=== PATIENT | female | born 1995 | race American Indian/Alaskan Native ===

== ENCOUNTER 2019-08-10 20:41 | Emergency (ER) | payer MEDICAID ==
[2019-08-10 20:52] VITALS: BP 104/62
--- NOTE | 2019-08-10 21:13 | Event Note ---
ED Screening Note Date of service: 08/10/19 Time: 21:12 ED Screening Note: Pt complains vaginal pain and swelling x 1 week denies diabetes +vaginal discharge denies dysuria/hematuria This initial assessment/diagnostic orders/clinical plan/treatment(s) is/are subject to change based on patients health status, clinical progression and re- assessment by fellow clinical providers in the ED. Further treatment and workup at subsequent clinical providers discretion. Patient/guardian urged not to elope from the ED as their condition may be serious if not clinically assessed and managed. Initial orders include: UA
[2019-08-10 22:06] LABS: Bacteria,Urine 2+ /HPF (Negative); Bilirubin,Urine NEG (Negative); Blood,Urine NEG (Negative); Color,Urine Yellow (Yellow); Mucus,Urine 3+ /HPF; Protein,Urine <15 mg/dL mg/dL (Negative); Urobilinogen,Urine < 2.0 mg/dL (<2.0)
[2019-08-10 22:08] LABS: HCG Qualitative,Urine Negative (Negative)
--- NOTE | 2019-08-10 23:49 | Emergency Department Report ---
ED Female HPI - General Chief complaint: Urogenital-Female Stated complaint: VAGINAL IRRITATION Time Seen by Provider: 08/10/19 21:14 Source: patient Mode of arrival: Ambulatory Limitations: No Limitations - History of Present Illness Initial comments: This is a 24-year-old female presents ED complaining of vaginal discharge and irritation times 1 week. Patient states that she used some Monistat treatment with no relief. Patient denies any ordered or vaginal bleeding. She states that she recently went to her [employer] and had STD testing which were negative. Patient states she's had these symptoms before and not being a bacterial infection. She denies nausea, vomiting, abdominal pain, pelvic pain, dysuria. MD Complaint: vaginal discharge -: week(s) (1) Are you Now?: No Associated Symptoms: vaginal discharge. denies: vaginal bleeding, abdominal pain, dysuria - Related Data Previous Rx's Medication Instructions Recorded Last Taken Type Pnv,Calcium 72/Iron/Folic Acid 1 each PO QDAY #30 tablet 12/06/15 Unknown Rx [ Vitamin with Low Iron] metroNIDAZOLE 0.75%(NF) [Metrogel 1 applicatio TP BID #1 tube 12/06/15 Unknown Rx 0.75% TOPICAL] Ferrous Sulfate [Feosol 325 MG tab] 325 mg PO BID #60 tablet 05/03/16 Unknown Rx Ibuprofen [Motrin] 800 mg PO Q8HR PRN #30 tablet 05/03/16 Unknown Rx Vit Calc,Iron,Folic 1 each PO DAILY #30 tablet 05/03/16 Unknown Rx [ Vitamins] Nitrofurantoin Treutlen/M-Cryst 100 mg PO Q12HR #14 capsule 08/10/19 Unknown Rx [Macrobid CAP] metroNIDAZOLE [metroNIDAZOLE 1 applic VG QHS 5 Days #1 08/10/19 Unknown Rx VAGINAL 0.75% gel] gel.w.appl Allergies Allergy/AdvReac Type Severity Reaction Status Date / Time No Known Allergies Allergy Verified 12/06/15 05:46 ED Review of Systems ROS: Stated complaint: VAGINAL IRRITATION Other details as noted in HPI Comment: All other systems reviewed and negative ED Past Medical Hx - Past Medical History Previous Medical History?: No Hx Hypertension: No Hx Congestive Heart Failure: No Hx Diabetes: No Hx Deep Vein Thrombosis: No Hx Renal Disease: No Hx Sickle Cell Disease: No Hx Seizures: No Hx Asthma: No Hx COPD: No Hx HIV: No - Surgical History Past Surgical History?: No - Social History Smoking Status: Never Smoker Substance Use Type: None - Medications Home Medications: Home Medications Medication Instructions Recorded Confirmed Last Taken Type Pnv,Calcium 72/Iron/Folic Acid 1 each PO QDAY #30 tablet 12/06/15 05/03/16 Unknown Rx [ Vitamin with Low Iron] metroNIDAZOLE 0.75%(NF) [Metrogel 1 applicatio TP BID #1 tube 12/06/15 05/03/16 Unknown Rx 0.75% TOPICAL] Ferrous Sulfate [Feosol 325 MG tab] 325 mg PO BID #60 tablet 05/03/16 Unknown Rx Ibuprofen [Motrin] 800 mg PO Q8HR PRN #30 tablet 05/03/16 Unknown Rx Vit Calc,Iron,Folic 1 each PO DAILY #30 tablet 05/03/16 Unknown Rx [ Vitamins] Nitrofurantoin Treutlen/M-Cryst 100 mg PO Q12HR #14 capsule 08/10/19 Unknown Rx [Macrobid CAP] metroNIDAZOLE [metroNIDAZOLE 1 applic VG QHS 5 Days #1 08/10/19 Unknown Rx VAGINAL 0.75% gel] gel.w.appl ED Physical Exam - General Limitations: No Limitations General appearance: alert, in no apparent distress - Head Head exam: Present: atraumatic, normocephalic - Eye Eye exam: Present: normal appearance - ENT ENT exam: Present: mucous membranes moist - Neck Neck exam: Present: normal inspection - Respiratory Respiratory exam: Present: normal lung sounds bilaterally. Absent: respiratory distress - Cardiovascular Cardiovascular Exam: Present: regular rate, normal rhythm. Absent: systolic murmur, diastolic murmur, rubs, gallop - GI/Abdominal GI/Abdominal exam: Present: soft, normal bowel sounds - Extremities Exam Extremities exam: Present: normal inspection - Back Exam Back exam: Present: normal inspection - Neurological Exam Neurological exam: Present: alert, oriented X3 - Psychiatric Psychiatric exam: Present: normal affect, normal mood - Skin Skin exam: Present: warm, dry, intact, normal color. Absent: rash ED Course Vital Signs 08/10/19 20:51 Temperature 98.4 F Pulse Rate 69 Respiratory 18 Rate Blood Pressure 104/62 O2 Sat by Pulse 99 Oximetry ED Medical Decision Making - Medical Decision Making This is a 24-year-old female presents with vaginitis. Urinalysis positive for UTI, test negative I discussed findings with the patient. Patient received antibiotic treatment for UTI and MetroGel for vaginitis. I discussed the patient to follow-up with her primary care within the week. Vital signs are normal she is in no acute distress Critical care attestation.: If time is entered above; I have spent that time in minutes in the direct care of this critically ill patient, excluding procedure time. ED Disposition Clinical Impression: Vaginitis Disposition: - TO HOME OR SELFCARE Is pt being admited?: No Does the pt Need Aspirin: No Condition: Stable Instructions: Bacterial Vaginosis (ED) Additional Instructions: Make sure to follow up with the primary care physician as discussed. Take all your medications as you've been prescribed. If you have any worsening symptoms or develop new symptoms please return to ED immediately. Prescriptions: metroNIDAZOLE [metroNIDAZOLE VAGINAL 0.75% gel] 1 applic VG QHS 5 Days #1 gel.w.appl Nitrofurantoin Treutlen/M-Cryst [Macrobid CAP] 100 mg PO Q12HR #14 capsule Referrals: PRIMARY CARE, [Primary Care Provider] - 3-5 Days [facility] [Outside] - 3-5 Days [facility] [Outside] - 3-5 Days Forms: Work/School Release Form(ED) Time of Disposition: 23:50
== END 2019-08-11 00:05 | disposition home or self-care (01) ==
LOC: ED 20:41
DX: N76.0 Acute vaginitis (principal); Z79.899 Other long term (current) drug therapy
CPT/HCPCS: 81001; 81025